=== PATIENT | female | born 1985 | race Two or more races ===

== ENCOUNTER → 2025-06-23 | Outpatient (CLI) | payer BC, SELFPAY ==
--- NOTE | 2025-06-23 16:00 | XR_ITS ---
Examination: CT head brain, without contrast. CT head brain with intravenous contrast 2-D sagittal reconstructions. 2-D coronal reconstructions. 3-D reconstructions. Date and time of exam: June 23, 2025, 1821 hours INDICATIONS: Left-sided headaches beginning 2 months ago CTDI: vol (mGy): 92 DLP: (mGycm): 1757 Technique: Multiple 1.25 mm axial sections of the head brain pre and post 50 cc [id number] have been obtained. 2-D sagittal and coronal reconstructions have been obtained. 3-D reconstructions have been obtained. Low dose protocols were performed. One or more of the following dose reduction techniques were used; automated exposure control, adjustment of the mA and/or KV according to patient size, use of iterative reconstruction technique. Findings: Ventricles are normal in size and configuration. No mass effect upon the ventricular system No effacement cortical sulcal markings. Fourth ventricle midline Cranial vault intact No abnormal enhancing cerebellar or cerebral lesions IMPRESSION: Negative for acute hemorrhage mass effect or midline shift No abnormal enhancing cerebellar or cerebral lesions If new onset headaches persist, consider brain MRI/MRA without contrast follow-up
== END | disposition home or self-care (01) ==
LOC: SCAT 16:26
PROVIDERS: PCP Nurse Practitioner Family; Referring Provider Nurse Practitioner Family; Visit Provider Nurse Practitioner Family
DX: G43.E19 Chronic migraine with aura, intractable, without status migrainosus (principal)
CPT/HCPCS: 70470; A4649; Q9967